=== PATIENT | female | born 1960 | race Caucasian/White ===

== ENCOUNTER → 2019-02-07 | Outpatient (CLI) | payer BC ==
--- NOTE | 2019-02-07 08:59 | WOMENS IMAGING REPORT ---
EXAM DESCRIPTION: U/S ABDOMEN TOTAL COMPLETED DATE/TIME: 02/07/2019 8:45 am REASON FOR STUDY: R10.13 ABDOMINAL PAIN, EPIGASTRIC R10.13 EPIGASTRIC PAIN COMPARISON: None. TECHNIQUE: Dynamic and static grayscale images acquired of the abdomen and recorded on PACS. Additio nal selected color Doppler and spectral images recorded. Note: Study does not meet criteria for complete doppler/duplex scan LIMITATIONS: None. FINDINGS: PANCREAS: No masses. Visualized pancreatic duct normal caliber. LIVER: No discrete masses. Increased echogenicity with decreased visualization of the portal triads. No intrahepatic ductal dilation. Liver measures 17 cm maximally. LIVER VASCULATURE: Normal directional flow of the main portal vein and hepatic veins. GALLBLADDER: Surgically absent. ULTRASOUND-DETECTED MCKINLEY'S SIGN: Negative. INTRAHEPATIC DUCTS AND COMMON DUCT: CBD and intrahepatic ducts normal caliber. No filling defects. INFERIOR VENA CAVA: Limited visualization. AORTA: Limited visualization. No visualize aneurysm. RIGHT KIDNEY: Normal in size measuring 11.6 cm Normal echogenicity. No solid or suspicious maría s. No hydronephrosis. No calcifications. LEFT KIDNEY: Normal in size measuring 10.3 cm. Normal echogenicity. No solid or suspicious maría s. No hydronephrosis. No calcifications. SPLEEN: Normal size measuring 8.0 cm. PERITONEAL AND PLEURAL SPACES: No ascites or effusions. OTHER: No other significant finding. IMPRESSION: 1. Hepatic steatosis. 2. Status post cholecystectomy. 3. Otherwise, unremarkable abdominal ultrasound as visualized. TECHNICAL DOCUMENTATION: JOB ID: [id number] [employer]- All Rights Reserved Reading location - IP/workstation name: [email or web address]
== END ==
LOC: WI 07:40
PROVIDERS: ATTEND Internal Medicine Gastroenterology
DX: K76.0 Fatty (change of) liver, not elsewhere classified (principal); R10.13 Epigastric pain
CPT/HCPCS: 76700